=== PATIENT | male | born 2005 | race Hispanic/Latino ===

== ENCOUNTER 2024-01-18 21:29 | Emergency (ER) | payer OTHER ==
[~2024-01-18] VITALS: Ht 180.3 cm; Wt 161.0 kg
[~2024-01-18 21:29] MED LIST: DEXAMETHASONE6 MG PO; VENTOLIN HFA18 GM INH
[2024-01-18 21:52] LABS: BASOPHILS % 0.2 % (0.0-1.0); EOSINOPHILS # (AUTO) 0.5 (0.0-0.4); EOSINOPHILS % 2.7 % (0.0-6.0); HEMATOCRIT 49.8 % (38.2-49.6); HEMOGLOBIN 15.7 g/dL (14.0-18.0); LYMPHOCYTES # (AUTO) 1.7 (1.0-3.2); MEAN CORPUSCULAR HEMOGLOBIN 27.9 pg (28-32); MEAN CORPUSCULAR HGB CONC 31.5 g/dL (31-35); MEAN CORPUSCULAR VOLUME 88.5 fL (81-99); MONOCYTES % 5.9 % (4.4-11.3); NEUTROPHILS # (AUTO) 13.8 (2.1-6.9); NEUTROPHILS % 80.8 % (38.7-80.0); PLATELET COUNT 267 x10e3/uL (140-360); RED BLOOD COUNT 5.63 x10e6/uL (4.3-5.7); RED CELL DISTRIBUTION WIDTH 12.9 % (11.7-14.4); WHITE BLOOD COUNT 17.03 x10e3/uL (4.8-10.8)
[2024-01-18] MEDS: ONDANSETRON HCL INJ 2MG/ML 2ML 2 MG/ML VIAL IV STA (21:53)
[2024-01-18] MEDS: SODIUM CHLORIDE 0.9% 1000ML 1,000 ML IV ONE (21:54)
[2024-01-18 22:18] LABS: ALBUMIN 4.1 g/dL (3.5-5.0); ALBUMIN/GLOBULIN RATIO 0.9 (0.8-2.0); ANION GAP 17.5 mmol/L (8-16); BILIRUBIN,TOTAL 1.2 mg/dL (0.2-1.2); CALCIUM 9.9 mg/dL (8.4-10.2); CREATININE, SERUM 1.31 mg/dL (0.72-1.25); LIPASE 13 U/L (8-78); POTASSIUM 3.5 mmol/L (3.5-5.1); TOTAL PROTEIN 8.7 g/dL (6.5-8.1)
[2024-01-18 22:29] LABS: TROPONIN I < 0.001 ng/mL (0-0.300)
[2024-01-18] MEDS ORDERED: IOPAMIDOL 370 MG/ML 100 ML INFUS..BTL INJ ONE (22:50)
[2024-01-18 23:55] LABS: CLARITY,URINE CLEAR (CLEAR); COLOR,URINE YELLOW (YELLOW)
[2024-01-18 23:56] LABS: BILIRUBIN,URINE NEGATIVE (NEGATIVE); GLUCOSE, URINE NEGATIVE (NEGATIVE); KETONES,URINE NEGATIVE (NEGATIVE); LEUKOCYTE ESTERASE ,URINE NEGATIVE (NEGATIVE); NITRITE,URINE NEGATIVE (NEGATIVE); PH,URINE 5.5 (5 - 7); PROTEIN,URINE DIPSTICK NEGATIVE (NEGATIVE); URINE UROBILINOGEN 0.2 mg/dL (0.2 - 1)
[2024-01-19 00:08] LABS: BACTERIA,URINE FEW /HPF; EPITHELIAL CELLS,URINE FEW /LPF; MUCUS,URINE FEW (RARE); RBC,URINE 0-5 /HPF (0-5); WBC,URINE (MAN) 0-5 /HPF (0-5)
[2024-01-19] MEDS ORDERED: PANTOPRAZOLE SO40 MG PO (00:15)
[2024-01-19] MEDS ORDERED: ONDANSETRON ODT4 MG SL (00:15)
[2024-01-19 00:22] VITALS: PULSE 63; RESP 16; TEMP 98.2; O2SAT 97
== END 2024-01-19 00:22 | disposition home or self-care (01) ==
LOC: ER 21:35
DX: R10.13 Epigastric pain (principal); R11.2 Nausea with vomiting, unspecified; J45.909 Unspecified asthma, uncomplicated
CPT/HCPCS: 36415; 74177; 80053; 81001; 83690; 84484; 85025; 93005; 99284; J2405; J2470; J7030; Q9967